=== PATIENT | female | born 1940 | race Caucasian/White ===

== ENCOUNTER 2017-03-29 09:02 | Emergency (ER) | payer MEDICARE, BC ==
--- NOTE | 2017-03-29 11:24 | ER PHYSICIAN DOCUMENTATION ---
Physician Documentation [facility] Name:Keiry Gutierres Age:76 yrs Sex:Female :1940 Arrival Date:03/29/2017 Time:09:02 BedTrauma-C Private MD: Art Ly Disposition: 03/29 21:54 Chart complete. tl1 Disposition: 03/29/17 10:46 Discharged to Home/Self Care. Impression: Paroxysmal Supraventricular Tach (PSVT). - Condition is Good. - Discharge Instructions: PSVT - PAT (P.A.T.). - Prescriptions for metoprolol succinate 50 mg Oral tablet extended release 24 hr - take 1 tablet by ORAL route once daily; 10 tablet. - Medical Reconciliation form form. - Follow up: Private Physician; When: 4- 6 days; Reason: Recheck today's complaints, Continuance of care. - Problem is new. - Symptoms have improved. HPI: 09:09 This 76 yrs old Female presents to ER with complaints of palpitations. tl1 09:09 She has a h/o SVT and felt like she was having another episode, and comes in now for 1 evaluation.. 09:09 About 1.5 yrs ago she was diagnosed with SVT by Holter monitor and has been seeing a 1 systems eng in [facility]. She has been treated with 25 mg/day of metoprolol succinate and has been doing well. An echo 2 weeks ago reportedly showed a Normal LV AND LA. Mild MR and AR. A Zio patch done recently for 3 days showed a single episode of SVT. She now comes in after an episode earlier this AM. When she awakened and stood up she was lightheaded and had rapid palpitations for about 10 seconds, She lay down for several minutes and felt OK, but then had the same thing several times more when she tried to stand up. She was OK supine after each event. She was concerned and called her brother in law, a recently retired systems eng from [facility], who came to her room. He noted a . 09:09 regular pulse at a rate of 80. tl1 Historical: - Allergies: Ciprofloxacin; - Home Meds: 1. Metoprolol Tartrate Oral 2. Lipitor Oral 3. Premarin Oral - PMHx: SVT; - PSHx: HYSTERECTOMY; - Tetanus: < 10 years. - Ebola Screening: : Patient denies exposure to infectious person. Patient denies travel to an Ebola-affected area in the 21 days before illness onset. . - Immunization history: Pneumococcal vaccine status is unknown. - Social history: Smoking status: Patient states was never smoker of tobacco. Patient uses alcohol Patient/guardian denies using marijuana. ROS: 09:09 Cardiovascular: Positive for palpitations, Negative for chest pain, edema, orthopnea, tl1 paroxysmal nocturnal dyspnea, acute changes. 09:09 Respiratory: Negative for cough, hemoptysis, pleurisy, shortness of breath. 09:09 Abdomen/GI: Negative for abdominal pain, nausea, vomiting, diarrhea. 09:09 All other systems are negative. Exam: 09:09 Constitutional: This is a well developed, well nourished patient who is awake, alert, tl1 and in no acute distress. Head/Face: Normocephalic, atraumatic. Neck: Trachea midline, no thyromegaly or masses palpated, and no cervical lymphadenopathy. Supple, full range of motion without nuchal rigidity, or vertebral point tenderness. No Meningismus. Chest/axilla: Normal chest wall appearance and motion. Nontender with no deformity. No lesions are appreciated. Cardiovascular: Regular rate and rhythm with a normal S1 and S2. No gallops, murmurs, or rubs. Normal PMI, no JVD. No pulse deficits. Respiratory: Lungs have equal breath sounds bilaterally, clear to auscultation and percussion. No rales, rhonchi or wheezes noted. No increased work of breathing, no retractions or nasal flaring. 09:09 Abdomen/GI: Soft, non-tender, with normal bowel sounds. No distension or tympany. No tl1 guarding or rebound. No evidence of tenderness throughout. 09:09 Skin: Exam negative for acute changes. 09:09 Neuro: Exam negative for acute changes. Vital Signs: 09:16 BP 136 / 61; Pulse 79; Resp 18; Temp 98.0; Pulse Ox 99% on R/A; Pain 0/10; st 11:01 BP 140 / 61 (auto/); sc1 11:06 Pulse 69 MON; Resp 14; Pulse Ox 98% ; sc1 MDM: 09:07 Patient medically screened. tl1 10:00 Data reviewed: vital signs, nurses notes, old medical records, and as a result, I will tl1 discharge patient. Test interpretation: by ED physician or midlevel provider: ECG. Counseling: I had a detailed discussion with the patient and/or guardian regarding: the historical points, exam findings, and any diagnostic results supporting the discharge/admit diagnosis, the need for outpatient follow up, to return to the emergency department if symptoms worsen or persist or if there are any questions or concerns that arise at home. ED course: She was asymptomatic throughout her ED stay. I called her systems eng in [place] but he did not return my call. I told her she could try increasing the metoprolol to 50 mg a day from 25. She was given a one liter bolus of NS after her pulse increased 40 points on standing, and she felt much improved at the time of d/c.. Dispensed Medications: 10:20 Drug: NS 0.9% 1000 ml; Route: IV; Rate: bolus; Site: left antecubital; Delivery: sc1 [place]; 11:00 Follow up: IV Status: Completed infusion; IV Intake: 1000ml sc1 Signatures: Melba Cano, RN Delphine Mchugh RN RN sc1 Art العراقي MD MD tl1
--- NOTE | 2017-03-29 11:24 | ER NURSING DOCUMENTATION ---
Nurse's Notes [facility] Name:Keiry Gutierres Age:76 yrs Sex:Female :1940 Arrival Date:03/29/2017 Time:09:02 BedTrauma-C Private MD: Diagnosis:Paroxysmal Supraventricular Tach (PSVT) Presentation: 03/29 09:08 Acuity: VASU 2 st 09:13 Presenting complaint: Patient states: pt feels like she is having a fast HR. It has st been going on since she woke up. pt states she has had some lightheadedness. pt has a hx of SVT. Transition of care: Home. 09:13 Method Of Arrival: Private Vehicle st Triage Assessment: 09:37 General: Appears in no apparent distress, well developed, well nourished, well groomed, sc1 Behavior is cooperative, pleasant. Pain: Denies pain. Historical: - Allergies: Ciprofloxacin; - Home Meds: 1. Metoprolol Tartrate Oral 2. Lipitor Oral 3. Premarin Oral - PMHx: SVT; - PSHx: HYSTERECTOMY; - Tetanus: < 10 years. - Ebola Screening: : Patient denies exposure to infectious person. Patient denies travel to an Ebola-affected area in the 21 days before illness onset. . - Immunization history: Pneumococcal vaccine status is unknown. - Social history: Smoking status: Patient states was never smoker of tobacco. Patient uses alcohol Patient/guardian denies using marijuana. Screenin:17 Infectious Disease Risk None. Abuse screen: Denies threats or abuse. Denies injuries st from another. Nutritional screening: No deficits noted. Assessment: 11:00 Reassessment: Patient denies pain at this time. Patient states feeling better. Patient sc1 states symptoms have improved. Patient appears in no apparent distress at this time. Vital Signs: 09:16 BP 136 / 61; Pulse 79; Resp 18; Temp 98.0; Pulse Ox 99% on R/A; Pain 0/10; st 11:01 BP 140 / 61 (auto/); sc1 11:06 Pulse 69 MON; Resp 14; Pulse Ox 98% ; sc1 ED Course: 09:01 EKG done per protocol. Performed by ED Staff. st 09:03 Patient arrived in ED. ama 09:07 Art العراقي MD is Attending Physician. tl1 09:08 Twombly, Summer, RN is Primary Nurse. st 09:[address] 09:17 Valuables Remains with patient Patient has correct armband on for positive st identification. Placed in gown. Bed in low position. surveillance monitor on. Pulse ox on. NIBP on. 09:37 Primary Nurse role handed off by Melba Cano RN [facility] 09:37 Delphine Christine, RN is Primary Nurse. wy1 09:37 Inserted peripheral IV: 20 gauge in right antecubital area and blood collected. sc1 10:59 Discontinued IV intact, bleeding controlled, pressure dressing applied, No sc1 redness/swelling at site. Administered Medications: 10:20 Drug: NS 0.9% 1000 ml; Route: IV; Rate: bolus; Site: left antecubital; Delivery: sc1 [place]; 11:00 Follow up: IV Status: Completed infusion; IV Intake: 1000ml sc1 Intake: 11:00 IV: 1000ml; Total: 1000ml. wy1 Outcome: 10:46 Discharge ordered by . tl1 11:17 Discharged to home ambulatory. wy1 11:17 Condition: improved 11:17 Discharge instructions given to patient, Instructed on discharge instructions, follow up and referral plans. medication usage, Demonstrated understanding of instructions, medications, Prescriptions given X 1. 11:23 Patient left the ED. wy1 03/30 13:40 Discharge F/U Call: Unable to reach: no answer st Signatures: Melba Cano RN RN st Campbell, Sandy, RN RN wy1 Hayden Rios, Reg Reg Art Lopez MD MD 1
== END 2017-03-29 11:24 | disposition home or self-care (01) ==
LOC: ER 09:02
DX: I47.1 Supraventricular tachycardia (principal); Z79.899 Other long term (current) drug therapy
CPT/HCPCS: 93005; 96360; 99284